=== PATIENT | female | born 1955 | race Caucasian/White ===

== ENCOUNTER → 2023-01-27 | Outpatient (CLI) | payer MEDICARE, OTHER ==
--- NOTE | 2023-01-27 11:00 | BD ---
EXAMINATION TYPE: Axial Bone Density DATE OF EXAM: 01/27/2023 CLINICAL HISTORY: 67 years old Female. ICD-10 CODE: Z78.0 ASYMPTOMATIC MENOPAUSAL STA Height: 69.5 in Weight: 177 lbs FRAX RISK QUESTIONS: History of Fracture in Adulthood: lt ankle age 58 RISK FACTORS HISTORY OF: Family History of Osteoporosis: yes mother Active: yes Postmenopausal woman: age 62 Lost more than 2 inches in height since high school: yes 2 05/10" MEDICATIONS: Additional Medications: blood pressure meds, multi vitamin, vit b complex, EXAM MEASUREMENTS: Bone mineral densitometry was performed using the [employer] System. Bone mineral density as measured about the Lumbar spine is: ----- L1-L4(G/cm2): 1.169 T Score Values are as follows: ----- L1: 0.1 ----- L2: -0.2 ----- L3: -0.3 ----- L4: -0.1 ----- L1-L4: -0.1 Z Score Values are as follows: ----- L1: 1.2 ----- L2: 0.9 ----- L3: 0.8 ----- L4: 1.0 ----- L1-L4: 1.0 Bone mineral density baseline Bone mineral density about the R hip (g/cm2): 0.962 Bone mineral density about the L hip (g/cm2): 0.954 T Score values are as follows: -----R Neck: -0.7 -----L Neck: -0.7 -----R Total: -0.4 -----L Total: -0.4 Z Score values are as follows: -----R Neck: 0.4 -----L Neck: 0.4 -----R Total: 0.5 -----L Total: 0.4 Bone mineral density baseline FRAX%s: The graph provided illustrates a 12.8% chance for a major osteoporotic fx and a 0.8% chance f or the hips probability for fx in 10 years time. IMPRESSION: Normal (Values between +1 and -1 indicate normal bone mass). Consider repeating this study in 5 year s or sooner if there is some new clinical indication. NOTE: T-SCORE=SD OF THE YOUNG ADULT MEAN.
--- NOTE | 2023-01-28 08:59 | MM ---
Reason for Exam: Screening (asymptomatic). Patient History: Menarche at age 14. First Full-Term at age 23. Postmenopausal. Risk Values: Kinsey 5 year model risk: 1.5%. NCI Lifetime model risk: 5.6%. Prior Study Comparison: No prior studies available for comparison. Tissue Density: The breast tissue is extremely dense which could obscure a lesion on mammography. Findings: Analyzed By CAD. There is no suspicious group of microcalcifications or new suspicious mass in either breast. Overall Assessment: Benign, BI-RAD 2 Management: Screening Mammogram of both breasts in 1 year. . Patient should continue monthly self-breast exams. A clinical breast exam by your physician is recommended on an annual basis. This exam should not preclude additional follow-up of suspicious palpable abnormalities. Note on Kinsey scores and lifetime risk: 1. A Kinsey score greater than 3% is considered moderate risk. If this is the case, consider specialist referral to assess eligibility for a risk reducing agent. 2. If overall lifetime risk for the development of breast cancer is 20% or higher, the patient may qualify for future screening with alternating mammogram and breast MRI. Electronically signed and approved by: Eliud Ware M.D. Radiologis
== END | disposition home or self-care (01) ==
LOC: RADMAMWWP 07:29
PROVIDERS: ATTEND Family Medicine
DX: Z12.31 Encounter for screening mammogram for malignant neoplasm of breast (principal); Z78.0 Asymptomatic menopausal state
CPT/HCPCS: 77063; 77067; 77080

== ENCOUNTER → 2024-07-13 | Outpatient (CLI) | payer OTHER, MEDICARE ==
--- NOTE | 2024-07-13 08:06 | MM ---
Reason for Exam: Screening (asymptomatic). Last mammogram was performed 1 year(s) and 6 month(s) ago. Patient History: Menarche at age 14. First Full-Term at age 23. Postmenopausal. Risk Values: Kinsey 5 year model risk: 1.5%. NCI Lifetime model risk: 5.2%. Prior Study Comparison: 01/27/2023 Bilateral MG 3D screening mammo w/cad, [facility]. Tissue Density: The breasts are heterogeneously dense, which may obscure small masses. Findings: Analyzed By CAD. There is no suspicious group of microcalcifications or new suspicious mass in either breast. Overall Assessment: Negative, BI-RAD 1 Management: Screening Mammogram of both breasts in 1 year. Patient should continue monthly self-breast exams. A clinical breast exam by your physician is recommended on an annual basis. This exam should not preclude additional follow-up of suspicious palpable abnormalities. Note on Kinsey scores and lifetime risk: 1. A Kinsey score greater than 3% is considered moderate risk. If this is the case, consider specialist referral to assess eligibility for a risk reducing agent. 2. If overall lifetime risk for the development of breast cancer is 20% or higher, the patient may qualify for future screening with alternating mammogram and breast MRI. [facility], , 07/13/2024 8:03 AM. Electronically signed and approved by: Colin Kirk M.D. Radiologist
== END | disposition home or self-care (01) ==
LOC: RADMAMWWP 07:33
PROVIDERS: ATTEND Family Medicine
DX: Z12.31 Encounter for screening mammogram for malignant neoplasm of breast (principal); R92.333 Mammographic heterogeneous density, bilateral breasts; Z78.0 Asymptomatic menopausal state
CPT/HCPCS: 77063; 77067